=== PATIENT | female | born 1980 | race Caucasian/White ===

== ENCOUNTER 2018-05-23 00:43 | Emergency (ER) | payer OTHER ==
[2018-05-23 02:09] VITALS: BP 154/87
== END 2018-05-23 02:09 | disposition home or self-care (01) ==
LOC: ED 00:43
DX: I10 Essential (primary) hypertension (principal)

== ENCOUNTER 2019-07-07 14:43 | Emergency (ER) | payer OTHER ==
[~2019-07-07] VITALS: Ht 162.6 cm; Wt 89.4 kg
[2019-07-07 14:49] VITALS: Ht 162.6 cm; Wt 89.4 kg
[2019-07-07 17:36] VITALS: BP 159/95
== END 2019-07-07 17:15 | disposition home or self-care (01) ==
LOC: ED 14:43
DX: F41.9 Anxiety disorder, unspecified (principal); I10 Essential (primary) hypertension; E66.9 Obesity, unspecified